=== PATIENT | male | born 1945 | race Caucasian/White ===

== ENCOUNTER → 2022-02-26 | Outpatient (CLI) | payer MEDICARE, BC | LOC: COL.RAD 09:35 | DX: G31.9 Degenerative disease of nervous system, unspecified (principal); G20 Parkinson's disease; E78.5 Hyperlipidemia, unspecified ==

== ENCOUNTER 2022-03-30 12:01 | Emergency (ER) | payer MEDICARE, BC ==
[~2022-03-30] VITALS: Ht 182.9 cm; Wt 113.6 kg
[2022-03-30 12:06] VITALS: TEMP 97.5
[2022-03-30] MEDS ORDERED: SINEMET 25/101 UDTAB PO (12:28)
[2022-03-30] MEDS ORDERED: LEVOXYL0.05 MG PO (12:28)
[2022-03-30 12:29] LABS: BASO % 0.8 % (0.0-2.0); EOS % 0.8 % (0.0-4.0); GRAN # 3.5 K/mm3 (1.4-6.5); GRAN % 67.2 % (42.2-75.2); HEMATOCRIT 40.4 % (42.0-52.0); HEMOGLOBIN 13.5 g/dl (13.5-18.0); LYMPH % 18.7 % (20.0-51.0); MEAN CELL VOLUME 92 fl (80.0-100.0); MEAN CORPUSCULAR HEMOGLOBIN 31 pg (27-31); MEAN CORPUSCULAR HGB CONC 33 g/dl (33.0-37.0); MEAN PLATELET VOLUME 10.6 fl (7.4-10.4); MONO # 0.6 K/mm3 (0.1-0.6); MONO % 12.1 % (1.7-9.3); PLATELET COUNT 179 K/mm3 (130-400); RED BLOOD COUNT 4.41 M/mm3 (4.20-5.60); REDCELL DISTRIBUTION WIDTH-CV 12.7 % (11.5-14.5)
[2022-03-30] MEDS ORDERED: ARICEPT10 MG PO (12:29)
[2022-03-30] MEDS ORDERED: TYLENOL 325MG325 MG PO (12:29)
[2022-03-30] MEDS ORDERED: FLOMAX 0.40.4 MG/CAP (12:30)
[2022-03-30] MEDS ORDERED: AZILECT1 MG PO (12:30)
[2022-03-30] MEDS ORDERED: PROSCAR 5MG5 MG PO (12:30)
[2022-03-30] MEDS ORDERED: TRICOR145 MG PO (12:31)
[2022-03-30] MEDS ORDERED: THE MEDICINE S200 M2 PO (12:31)
[2022-03-30] MEDS ORDERED: ASPIRIN 81M81 MG/TA2 PO (12:31)
[2022-03-30] MEDS ORDERED: PRAVACHOL10 MG PO (12:32)
[2022-03-30] MEDS ORDERED: METAMUCIL3.4 GM/DOS PO (12:32)
[2022-03-30 12:42] LABS: ALBUMIN 4.1 gm/dL (3.4-4.8); ALKALINE PHOSPHATASE 32 U/L (40-150); ANION GAP 9 mmol/L (7-16); AST,SGOT 30 U/L (5-34); BILIRUBIN,TOTAL 0.6 mg/dL (0.2-1.2); BLOOD UREA NITROGEN 28 mg/dL (8-26); CALCIUM 8.8 mg/dL (8.4-10.2); CARBON DIOXIDE 25 mmol/L (23-31); CHLORIDE 106 mmol/L (98-107); CREATININE, serum 1.23 mg/dL (0.72-1.25); GLUCOSE 95 mg/dL (70-99); POTASSIUM 4.4 mmol/L (3.5-4.5); SODIUM 140 mmol/L (136-145); TOTAL PROTEIN 6.7 gm/dL (6.2-8.1)
[2022-03-30 12:43] LABS: ALANINE AMINOTRANSFERASE < 6 U/L (0-55)
[2022-03-30 12:46] LABS: MAGNESIUM 2.1 mg/dL (1.6-2.6)
[2022-03-30 12:48] LABS: TROPONIN-I < 0.010 ng/mL (0.00-0.033)
[2022-03-30 13:08] LABS: TSH w REFLEX 2.799 uIU/mL (0.350-4.940)
[2022-03-30 14:00] VITALS: BP 119/77; PULSE 60
[2022-04-09] MEDS ORDERED: B-121000 MCG PO (11:21)
[2022-04-09] MEDS ORDERED: FLAREX 5 ML5 M1 OP (11:23)
[2022-04-09] MEDS ORDERED: THERATEARS 15 M15 ML OP (11:24)
[2022-04-09] MEDS ORDERED: SYSTANE GEL EYE10 ML OP (11:32)
[2022-04-09] MEDS ORDERED: MIRALAX PA17 GM/Dose PO (11:33)
[2022-04-09] MEDS ORDERED: CORTIZONE-10 MAXIM11 TP (11:34)
[2022-04-09] MEDS ORDERED: TAMBOCOR50 MG PO (14:48)
== END 2022-03-30 14:22 | disposition home or self-care (01) ==
LOC: COL.ER 12:01
PROVIDERS: Emergency Medicine
DX: I49.3 Ventricular premature depolarization (principal); R55 Syncope and collapse; Z20.822 Contact with and (suspected) exposure to COVID-19
CPT/HCPCS: J7120

== ENCOUNTER 2023-10-24 10:19 | Emergency (ER) | payer MEDICARE, BC ==
[~2023-10-24] VITALS: Ht 182.9 cm; Wt 113.6 kg
[~2023-10-24 10:19] MED LIST: ARICEPT10 MG PO; ASPIRIN 81M81 MG/TA2 PO; AZILECT1 MG PO; B-121000 MCG PO; CORTIZONE-10 MAXIM11 TP; FLAREX 5 ML5 M1 OP; FLOMAX 0.40.4 MG/CAP; LEVOXYL0.05 MG PO; METAMUCIL3.4 GM/DOS PO; MIRALAX PA17 GM/Dose PO; PRAVACHOL10 MG PO; PROSCAR 5MG5 MG PO; SINEMET 25/101 UDTAB PO; SYSTANE GEL EYE10 ML OP; TAMBOCOR50 MG PO; THE MEDICINE S200 M2 PO; THERATEARS 15 M15 ML OP; TRICOR145 MG PO; TYLENOL 325MG325 MG PO
[2023-10-24 10:24] VITALS: TEMP 97.7
[2023-10-24 10:34] LABS: BASO # 0.1 K/mm3 (0.0-0.2); BASO % 1.1 % (0.0-2.0); EOS # 0.1 K/mm3 (0.0-0.7); GRAN % 65.7 % (42.2-75.2); HEMATOCRIT 39.2 % (42.0-52.0); HEMOGLOBIN 12.8 g/dl (13.5-18.0); LYMPH # 0.9 K/mm3 (1.2-3.4); LYMPH % 19.8 % (20.0-51.0); MEAN CELL VOLUME 96 fl (80.0-100.0); MEAN CORPUSCULAR HEMOGLOBIN 31 pg (27-31); MEAN CORPUSCULAR HGB CONC 33 g/dl (33.0-37.0); MEAN PLATELET VOLUME 10.6 fl (7.4-10.4); MONO # 0.5 K/mm3 (0.1-0.6); MONO % 11.2 % (1.7-9.3); PLATELET COUNT 175 K/mm3 (130-400); RED BLOOD COUNT 4.08 M/mm3 (4.20-5.60); REDCELL DISTRIBUTION WIDTH-CV 13.2 % (11.5-14.5)
[2023-10-24 10:41] LABS: INR 1.3 (0.8-3.0); PROTHROMBIN TIME 14.1 SECONDS (9.7-12.8)
[2023-10-24 10:54] LABS: ALKALINE PHOSPHATASE 39 U/L (40-150); ANION GAP 11 mmol/L (7-16); AST,SGOT 24 U/L (5-34); BILIRUBIN,TOTAL 0.7 mg/dL (0.2-1.2); BLOOD UREA NITROGEN 21 mg/dL (8-26); CARBON DIOXIDE 24 mmol/L (23-31); CHLORIDE 106 mmol/L (98-107); CREATININE, serum 1.23 mg/dL (0.72-1.25); GLUCOSE 125 mg/dL (70-99); POTASSIUM 3.8 mmol/L (3.5-4.5); SODIUM 141 mmol/L (136-145); TOTAL PROTEIN 6.8 gm/dL (6.2-8.1)
[2023-10-24 11:01] LABS: ALANINE AMINOTRANSFERASE < 6 U/L (0-55); TROPONIN-I < 0.010 ng/mL (0.00-0.033)
[2023-10-24 13:33] LABS: COLLECTION METHOD CLEAN CATCH
[2023-10-24 13:47] LABS: PH 7.5 (5.0-8.5); SQUAMOUS EPITHELIAL None Seen /hpf (0-10); URINE APPEARANCE Clear (CLEAR/HAZY); URINE BLOOD Negative (NEGATIVE); URINE COLOR Yellow (YELLOW); URINE GLUCOSE Negative (NEGATIVE); URINE KETONE Negative (NEGATIVE); URINE NITRATE Negative (NEGATIVE); URINE PROTEIN(semi-quant) Negative (NEGATIVE); URINE RBC None Seen /hpf (0-2)
[2023-10-24 14:45] VITALS: BP 108/77; PULSE 66
== END 2023-10-24 14:45 | disposition home or self-care (01) ==
LOC: COL.ER 10:19
PROVIDERS: Nurse Practitioner
DX: R55 Syncope and collapse (principal)

== ENCOUNTER 2023-12-14 09:36 | Outpatient (CLI) | payer MEDICARE, BC ==
[~2023-12-14] VITALS: Ht 182.9 cm; Wt 114.6 kg
[~2023-12-14 09:36] MED LIST changes: -FLOMAX 0.40.4 MG/CAP; +FLOMAX 0.40.4 MG/CAP PO
[2023-12-14 09:52] VITALS: BP 134/85; PULSE 72; TEMP 97.4
[2023-12-14] MEDS ORDERED: FLORINEF ACETA0.1 MG PO (10:13)
[2023-12-14] MEDS ORDERED: NAMENDA 10MG TA10 MG PO (10:14)
[2023-12-14 11:53] VITALS: BP 140/94; PULSE 79
--- NOTE | 2023-12-14 12:27 | NUR ---
Pt ambulated to EU9 with a steady gait, accompanied by thier . Pt was scheduled for a tilt table. EKG done. IV started. Meds and HX reviewed with the pt. Consent for the procedure signed. Post procedure pt came back to EU9. Offered the pt something to drink. Pt accepted a apple juice. Pt recovered with us for about 30 minutes. Discharge education and information given to the pt. No questions at this time. Pt exited the unit by wheelcahir to wifes car.
== END 2023-12-14 12:23 | disposition home or self-care (01) ==
LOC: COL.CAR 09:36
DX: R55 Syncope and collapse (principal); R42 Dizziness and giddiness

== ENCOUNTER 2024-05-25 23:12 | Emergency (ER) | payer MEDICARE, BC ==
[~2024-05-25] VITALS: Ht 182.9 cm; Wt 106.8 kg
[~2024-05-25 23:12] MED LIST changes: +FLORINEF ACETA0.1 MG PO; +NAMENDA 10MG TA10 MG PO
[2024-05-25 23:14] VITALS: TEMP 97.4
[2024-05-25 23:45] LABS: HEMATOCRIT 38.4 % (42.0-52.0); HEMOGLOBIN 12.4 g/dl (13.5-18.0); MEAN CELL VOLUME 95 fl (80.0-100.0); MEAN CORPUSCULAR HEMOGLOBIN 31 pg (27-31); MEAN CORPUSCULAR HGB CONC 32 g/dl (33.0-37.0); MEAN PLATELET VOLUME 11.6 fl (7.4-10.4); PLATELET COUNT 175 K/mm3 (130-400); RED BLOOD COUNT 4.03 M/mm3 (4.20-5.60); REDCELL DISTRIBUTION WIDTH-CV 14.6 % (11.5-14.5)
[2024-05-25] MEDS ORDERED: NS 1,000 ML IV ONE (23:45)
[2024-05-26] LABS: BAND 8 % (0-10); LYMPHOCYTE 4 % (20.0-51.0); NEUTROPHILS 85 % (42.0-75.2); PLATELET ESTIMATE NORMAL (NORMAL)
[2024-05-26 00:04] LABS: ALANINE AMINOTRANSFERASE 17 U/L (0-55); ALBUMIN 3.5 g/dL (3.4-4.8); ALKALINE PHOSPHATASE 53 U/L (40-150); ANION GAP 10 mmol/L (7-16); AST,SGOT 48 U/L (5-34); C-REACTIVE PROTEIN 1.34 mg/dL (0.00-0.50); CALCIUM 9.1 mg/dL (8.4-10.2); CHLORIDE 104 mEq/L (98-107); GLUCOSE 130 mg/dL (70-99); POTASSIUM 3.9 mEq/L (3.5-4.5); SODIUM 139 mEq/L (136-145); TOTAL PROTEIN 6.9 g/dl (6.2-8.1)
[2024-05-26 00:18] LABS: BLOOD UREA NITROGEN 24 mg/dL (8-26)
[2024-05-26 00:30] LABS: TROPONIN-I < 0.010 ng/mL (0.00-0.033)
[2024-05-26 01:20] VITALS: BP 131/70; PULSE 73
== END 2024-05-26 01:20 | disposition home or self-care (01) ==
LOC: COL.ER 23:12
PROVIDERS: Emergency Medicine
DX: R55 Syncope and collapse (principal)
CPT/HCPCS: J7030

== ENCOUNTER 2024-06-29 11:37 | Emergency (ER) | payer MEDICARE, BC ==
[~2024-06-29] VITALS: Ht 182.9 cm; Wt 106.8 kg
[2024-06-29 11:38] VITALS: TEMP 97.6
[2024-06-29] MEDS ORDERED: NS 1,000 ML IV ONE (12:00)
[2024-06-29 12:11] LABS: BASO # 0.1 K/mm3 (0.0-0.2); BASO % 1.1 % (0.0-2.0); EOS # 0.1 K/mm3 (0.0-0.7); EOS % 1.6 % (0.0-4.0); GRAN # 3.2 K/mm3 (1.4-6.5); GRAN % 73.7 % (42.2-75.2); HEMOGLOBIN 11.2 g/dl (13.5-18.0); LYMPH # 0.7 K/mm3 (1.2-3.4); LYMPH % 15.1 % (20.0-51.0); MEAN CELL VOLUME 97 fl (80.0-100.0); MEAN CORPUSCULAR HEMOGLOBIN 32 pg (27-31); MEAN CORPUSCULAR HGB CONC 33 g/dl (33.0-37.0); MEAN PLATELET VOLUME 10.6 fl (7.4-10.4); MONO # 0.4 K/mm3 (0.1-0.6); MONO % 8.3 % (1.7-9.3); PLATELET COUNT 182 K/mm3 (130-400); RED BLOOD COUNT 3.53 M/mm3 (4.20-5.60)
[2024-06-29 12:12] LABS: HEMATOCRIT 34.3 % (42.0-52.0)
[2024-06-29 12:31] LABS: ALBUMIN 3.6 g/dL (3.4-4.8); ALKALINE PHOSPHATASE 46 U/L (40-150); ANION GAP 10 mmol/L (7-16); AST,SGOT 19 U/L (5-34); BILIRUBIN,TOTAL 0.6 mg/dL (0.2-1.2); BLOOD UREA NITROGEN 20 mg/dL (8-26); C-REACTIVE PROTEIN 1.15 mg/dL (0.00-0.50); CALCIUM 8.9 mg/dL (8.4-10.2); CHLORIDE 108 mEq/L (98-107); CREATINE KINASE 46 U/L (30-200); GLUCOSE 117 mg/dL (70-99); POTASSIUM 3.8 mEq/L (3.5-4.5); SODIUM 142 mEq/L (136-145); TOTAL PROTEIN 6.5 g/dl (6.2-8.1)
[2024-06-29 12:35] LABS: ALANINE AMINOTRANSFERASE < 6 U/L (0-55)
[2024-06-29 12:46] LABS: TROPONIN-I < 0.010 ng/mL (0.00-0.033)
[2024-06-29] MEDS ORDERED: AMOXICILLIN 8751 TAB PO (13:47)
[2024-06-29 14:15] VITALS: BP 155/78; PULSE 60
== END 2024-06-29 14:12 | disposition home or self-care (01) ==
LOC: COL.ER 11:37
PROVIDERS: Emergency Medicine
DX: R55 Syncope and collapse (principal); J69.0 Pneumonitis due to inhalation of food and vomit; Z88.1 Allergy status to other antibiotic agents
CPT/HCPCS: J7030

== ENCOUNTER 2024-10-12 20:00 | Observation (INO) | payer MEDICARE, BC ==
[~2024-10-12] VITALS: Ht 182.9 cm; Wt 103.0 kg
[~2024-10-12 20:00] MED LIST changes: +AMOXICILLIN 8751 TAB PO
[2024-10-12 20:34] LABS: BASO # 0.1 K/mm3 (0.0-0.2); BASO % 0.8 % (0.0-2.0); EOS # 0.1 K/mm3 (0.0-0.7); EOS % 0.8 % (0.0-4.0); GRAN # 4.9 K/mm3 (1.4-6.5); GRAN % 67.4 % (42.2-75.2); HEMATOCRIT 37.9 % (42.0-52.0); HEMOGLOBIN 12.5 g/dl (13.5-18.0); LYMPH # 1.3 K/mm3 (1.2-3.4); LYMPH % 18.4 % (20.0-51.0); MEAN CELL VOLUME 96 fl (80.0-100.0); MEAN CORPUSCULAR HEMOGLOBIN 32 pg (27-31); MEAN CORPUSCULAR HGB CONC 33 g/dl (33.0-37.0); MEAN PLATELET VOLUME 11.1 fl (7.4-10.4); MONO # 0.9 K/mm3 (0.1-0.6); MONO % 12.2 % (1.7-9.3); PLATELET COUNT 200 K/mm3 (130-400); RED BLOOD COUNT 3.97 M/mm3 (4.20-5.60); REDCELL DISTRIBUTION WIDTH-CV 13.9 % (11.5-14.5)
[2024-10-12 20:45] LABS: ALBUMIN 4.4 g/dL (3.4-4.8); BILIRUBIN,TOTAL 0.9 mg/dL (0.2-1.2); C-REACTIVE PROTEIN 2.89 mg/dL (0.00-0.50); CALCIUM 9.6 mg/dL (8.4-10.2); CREATININE, serum 1.18 mg/dL (0.72-1.25); TOTAL PROTEIN 7.7 g/dl (6.2-8.1)
[2024-10-12 20:51] LABS: TROPONIN-I 0.013 ng/mL (0.00-0.033)
[2024-10-12] MEDS ORDERED: NS 1,000 ML IV ONE (21:00)
[2024-10-12 22:59] LABS: COLLECTION METHOD RANDOM VOIDED
[2024-10-12 23:02] LABS: URINE APPEARANCE CLEAR (CLEAR/HAZY); URINE BLOOD NEGATIVE (NEGATIVE); URINE COLOR YELLOW (YELLOW); URINE GLUCOSE NEGATIVE (NEGATIVE); URINE KETONE NEGATIVE (NEGATIVE); URINE NITRATE NEGATIVE (NEGATIVE); URINE PROTEIN(semi-quant) NEGATIVE (NEGATIVE)
[2024-10-13] VITALS (9 sets, daily range): BP systolic 110–134; BP diastolic 71–80; PULSE 59–69; TEMP 97.5–98.8
[2024-10-13] MEDS ORDERED: FML 5 ML5 ML OP (02:03)
[2024-10-13] MEDS ORDERED: CORDARONE200 MG/TAB PO (02:03)
[2024-10-13] MEDS ORDERED: PREVACID 30MG30 M1 PO (02:03)
[2024-10-13] MEDS ORDERED: SYNTHROID0.05 MG/TA PO (02:04)
[2024-10-13] MEDS ORDERED: LOFIBRA160 MG PO (02:06)
[2024-10-13] MEDS ORDERED: Acetaminophen 325 MG TAB PO PRN (02:15)
[2024-10-13] MEDS ORDERED: PERIDEX (CHLOR480 ML MM (02:17)
[2024-10-13] MEDS ORDERED: BIOTENE MOIST44.3 ML PO (02:18)
--- NOTE | 2024-10-13 03:10 | NUR ---
report received from ED RN.
[2024-10-13] MEDS ORDERED: NS 1,000 ML IV SCH (04:00)
--- NOTE | 2024-10-13 04:18 | NUR ---
0320- patient arrived to room 353 via stretcher accompained by his Silvia. Patient transferred to bed and fall precautions in place. Vital signs stable at this time. Patient reports pain in his mouth from a sore. Left wrist IV noted, NS restarted at 75ml/hr. Skin and head to toe assessment completed. No sores, cuts or wounds noted. Medications reviewed. Patient is on bedrest, using bedside urinal. Call moore within reach, bed lowered and locked. Patient is educated to call if needs to get up as he is on a bed alarm. Tele monitor in place. states patient requires his pills to be given with pudding/applesauce and his HOB needs to be greater than 30 degrees d/t history of aspiration. Shruthi SANTAMARIA called.
[2024-10-13 06:20] LABS: BASO % 0.7 % (0.0-2.0); EOS # 0.1 K/mm3 (0.0-0.7); EOS % 1.5 % (0.0-4.0); GRAN # 4.2 K/mm3 (1.4-6.5); GRAN % 69.3 % (42.2-75.2); HEMATOCRIT 36.6 % (42.0-52.0); HEMOGLOBIN 11.7 g/dl (13.5-18.0); LYMPH # 0.9 K/mm3 (1.2-3.4); LYMPH % 14.9 % (20.0-51.0); MEAN CELL VOLUME 97 fl (80.0-100.0); MEAN CORPUSCULAR HEMOGLOBIN 31 pg (27-31); MEAN CORPUSCULAR HGB CONC 32 g/dl (33.0-37.0); MEAN PLATELET VOLUME 10.8 fl (7.4-10.4); MONO # 0.8 K/mm3 (0.1-0.6); MONO % 13.3 % (1.7-9.3); PLATELET COUNT 162 K/mm3 (130-400); RED BLOOD COUNT 3.78 M/mm3 (4.20-5.60); REDCELL DISTRIBUTION WIDTH-CV 13.9 % (11.5-14.5)
[2024-10-13 06:32] LABS: CALCIUM 8.5 mg/dL (8.4-10.2); CREATININE, serum 0.87 mg/dL (0.72-1.25); POTASSIUM 3.6 mEq/L (3.5-4.5)
[2024-10-13] MEDS ORDERED: [UNRECOGNIZED DRUG - OTHER] PO SCH (07:00)
[2024-10-13] MEDS ORDERED: LANSOPRAZOLE 30 MG PO SCH (07:00)
--- NOTE | 2024-10-13 07:05 | NUR ---
PT RESTING IN BED. PT IS ON RA. PT IS SR ON TELE. PT IS AXOX4, BUT SLOW TO RESPOND WITH SLIGHLY SLURRED SPEECH, WHICH IS BASELINE PER . PT IS A FALL RISK. FALL PRECAUTIONS IN PLACE. BEDALARM ACTIVE. PT HAS CALL LIGHT AND INSTRUCTED TO CALL WITH ALL NEEDS.
[2024-10-13] MEDS ORDERED: Fludrocortisone 0.1 MG TAB PO SCH (09:00)
[2024-10-13] MEDS ORDERED: Chlorhexidine 0.12% Oral Rinse 480 ML BOTTLE MM SCH (09:00)
[2024-10-13] MEDS ORDERED: Cyanocobalamin (Vit B-12) 1,000 MCG TAB PO SCH (09:00)
[2024-10-13] MEDS ORDERED: Memantine 10 MG TAB PO SCH (09:00)
--- NOTE | 2024-10-13 10:27 | NUR ---
0900- BROUGHT IN ALL HOME MEDS. MED REC COMPLETED. NOTIFIED.
[2024-10-13] MEDS ORDERED: Polyethylene Glycol 3350 17 GM PDS PO SCH (12:00)
[2024-10-13] MEDS ORDERED: Donepezil 5 MG TAB PO SCH (12:00)
[2024-10-13] MEDS ORDERED: Psyllium Powder 5.8 G (3.4 G Psyllium) PACKET PO SCH (12:00)
[2024-10-13] MEDS ORDERED: Fenofibrate 54 MG TABLET PO SCH (12:00)
--- NOTE | 2024-10-13 13:08 | NUR ---
[employer] met with patient and his , Daisha (ph#[phone]) to discuss discharge planning. Patient lives in [place] and sees Dr. Harmon for primary care. Patient gets his medications from [facility] and has no difficulty affording medications. Patient was hospitalized this summer and was then sent to [facility], [facility], and then to [facility]. [facility] to his home and made equipment recommendations. Patient has two walkers, a transport chair, hospital bed, multiple grab bars throughout the home, and a left chair. Patient's described a rapid decline in functioning over the last two days which prompted her to contact primary care, then bring him into the ER. LYNDSAY discussed discharge planning options and that patient is observation status, meaning if he goes to SNF, it would be private pay. Daisha advised they are able to do this if necessary, however patient is determined to return home. They have [facility] that was scheduled to start services tomorrow. Daisha advised they may also consider hiring private duty services for assistance if needed. At this time, plan is to return home with HH as this is patient's preference, however Daisha would like to see how he does and touch base tomorrow. LYNDSAY faxed referral to [facility] Discharge Plan: Home with [facility] and possible private duty services
[2024-10-13] MEDS ORDERED: Amiodarone 200 MG TAB PO SCH (14:00)
--- NOTE | 2024-10-13 22:45 | NUR ---
Bedside report given. Patient sittint up in chair, accompained by Daisha. Patient denies any pain or any new issues at this time. Assessment completed and night meds passed with applesauce. Patient tolerated well. 20g left wrist IV present, noted to be C/D/I and covered with wrap. IVF at 75ml/hr. Tolerating well. Tele and fall precautions in place, bed alarm on. Patient prepped for bed. Teeth brushed via assist. Patient voided in urinal x1 with assist. Bed lowered and locked, call moore within reach.
[2024-10-14 03:21] VITALS: BP 123/78; PULSE 59; TEMP 97.9
[2024-10-14 03:27] VITALS: BP_SYST 123
--- NOTE | 2024-10-14 07:00 | NUR ---
BEDSIDE SHIFT REPORT RECIEVED AT THIS TIME. PT RESTING IN BED.
[2024-10-14 07:21] VITALS: BP 124/76; PULSE 53; TEMP 98.1
--- NOTE | 2024-10-14 08:17 | NUR ---
SHIFT ASSESSMENT COMPLETED AT THIS TIME. PT A&OX4. PT REPORTS 3/10 PAIN LOCATED IN THE RIGHT SHOULDER. PT REFUSES PRN PAIN MEDICATIONS. PT RESTING IN BED UPON ENTRANCE. PT DENIES NAUSEA AND SOB. IVF INFUSING AT 74ML/HR INTO LEFT WRIST. PT COCCYX RED. FALL PRECAUTIONS IN PLACE. SCHEDULED MORNING MEDICATIONS ADMINISTERED WITHOIT COMPLICATIONS. CALL [facility] WITHIN REACH. NO FURTHER NEEDS AT THIS TIME.
[2024-10-14] MEDS ORDERED: Patient's Own Medication Item OP SCH (09:00)
[2024-10-14] MEDS ORDERED: Patient's Own Medication Item MM SCH (09:00)
[2024-10-14 09:28] VITALS: BP_SYST 124
--- NOTE | 2024-10-14 11:33 | NUR ---
DISCHARGE ORDERS RECIEVED AT THIS TIME. AT BEDSIDE.
[2024-10-14 11:35] VITALS: BP 148/89; PULSE 63; TEMP 97.6
--- NOTE | 2024-10-14 12:36 | NUR ---
D: [employer] stopped by room on rounds. A: Pt was resting and content in his chair with his in the room. Pt has no needs right now. P: [employer] informed pt that if he needed anything from the outside laborer area to let his nurse know. [employer] will follow up as needed.
[2024-10-14 13:17] VITALS: BP_SYST 148
--- NOTE | 2024-10-14 13:37 | NUR ---
IVAN. PA NOTIFIED OF PT'S REQUEST OF A TONGUE EVALUATION D/T A SORE FROM BITING HIS TONGUE A FEW WEEKS AGO.
--- NOTE | 2024-10-14 14:57 | NUR ---
Senior Administrative Support met with patient and his , Daisha to check in on discharge planning. Patient still prefers to return home with [facility] and is agreeable. LYNDSAY contacted Jorge at [facility] and faxed discharge orders. Discharge Plan: Home with [facility]
--- NOTE | 2024-10-14 15:15 | NUR ---
PT ESCORTED VIA WHEELCHAIR TO PRIVATE VEHICLE WITH TO DISCHARGE HOME.
== END 2024-10-14 15:15 | disposition home or self-care (01) ==
LOC: COL.ER 20:00 → MEDICAL 10-13 02:30
PROVIDERS: Nurse Practitioner; Nurse Practitioner Family; ADMIT Internal Medicine
DX: R53.83 Other fatigue (principal); R53.81 Other malaise; G20.A1 Parkinson's disease without dyskinesia, without mention of fluctuations; N18.9 Chronic kidney disease, unspecified; E78.5 Hyperlipidemia, unspecified; I48.91 Unspecified atrial fibrillation; E03.9 Hypothyroidism, unspecified; K21.9 Gastro-esophageal reflux disease without esophagitis; F02.80 Dementia in other diseases classified elsewhere, unspecified severity, without behavioral disturbance, psychotic disturbance, mood disturbance, and anxiety; Z79.890 Hormone replacement therapy; Z79.899 Other long term (current) drug therapy; D64.9 Anemia, unspecified; Z79.82 Long term (current) use of aspirin
CPT/HCPCS: G0378; J1650; J7030